=== PATIENT | female | born 1995 | race Caucasian/White ===

== ENCOUNTER → 2017-01-01 | Outpatient (CLI) | payer MEDICAID | LOC: MW.CHOBGYN 08:53 | PROVIDERS: ATTEND Obstetrics & Gynecology | DX: N89.8 Other specified noninflammatory disorders of vagina (principal) | CPT/HCPCS: 81003; 87480; 87510; 87660 ==

== ENCOUNTER → 2017-01-25 | Outpatient (CLI) | payer MEDICAID | LOC: MW.CHOBGYN 10:38 | PROVIDERS: ATTEND Obstetrics & Gynecology | DX: Z34.90 Encounter for supervision of normal pregnancy, unspecified, unspecified trimester (principal) | CPT/HCPCS: 87081 ==

== ENCOUNTER → 2017-02-01 | Outpatient (CLI) | payer MEDICAID | LOC: MW.CHOBGYN 10:24 | PROVIDERS: ATTEND Obstetrics & Gynecology | DX: Z34.90 Encounter for supervision of normal pregnancy, unspecified, unspecified trimester (principal) | CPT/HCPCS: 81003 ==

== ENCOUNTER → 2017-02-08 | Outpatient (CLI) | payer MEDICAID | LOC: MW.CHOBGYN 10:18 | PROVIDERS: ATTEND Obstetrics & Gynecology | DX: Z34.90 Encounter for supervision of normal pregnancy, unspecified, unspecified trimester (principal) | CPT/HCPCS: 81003 ==

== ENCOUNTER 2017-02-25 05:07 | Inpatient (IN) | payer MEDICAID ==
[2017-02-25] MEDS ORDERED: ceFAZolin 2 GM in Premix Bag 1 BAG IV ONE (05:12)
[2017-02-25] MEDS ORDERED: Sodium Chloride 0.9% 2.5 ML Syringe FLUSH PRN (05:12)
[2017-02-25] MEDS ORDERED: Sodium Chloride 0.9% 10 ML Syringe FLUSH PRN (05:12)
[2017-02-25] MEDS ORDERED: Citric Acid/Sodium Citrate Solution 30 ML Cup PO ONE (05:15)
[2017-02-25] MEDS: Lactated Ringers 1,000 ML IV SCH ×2 (05:30→06:09)
--- NOTE | 2017-02-25 07:00 | PCM.PREANE ---
Preanesthetic Assessment - Procedure Proposed Procedure: - Anesthesia/Transfusion/Family Hx Anesthesia History: Prior Anesthesia Without Reaction Family History of Anesthesia Reaction: No Transfusion History: No Prior Transfusion(s) Intubation History: Unknown Additional History: Vaginal herpes flare initiated add-on - Review of Systems General: No Symptoms Pulmonary: No Symptoms Cardiovascular: No Symptoms Gastrointestinal: Other (heartburn) Neurological: No Symptoms Other: Reports: None - Physical Assessment Height: 5 ft 2 in Weight: 149 lb ASA Class: 2 Mental Status: Alert & Oriented x3 Airway Class: Mallampati = 1 Dentition: Reports: Normal Dentition Thyro-Mental Finger Breadths: 3 Mouth Opening Finger Breadths: 3 (tongue post) ROM/Head Extension: Full Lungs: Clear to auscultation, Normal respiratory effort Cardiovascular: Regular Rate, Regular Rhythm, No Murmurs - Lab Values: Laboratory Last Values WBC 7.85 K/uL (4.0-11.0) 02/25/17 05:23 RBC 3.91 M/uL (4.30-5.90) L 02/25/17 05:23 Hgb 12.2 g/dL (12.0-16.0) 02/25/17 05:23 Hct 35.1 % (36.0-46.0) L 02/25/17 05:23 MCV 89.8 fL (80.0-98.0) 02/25/17 05:23 MCH 31.2 pg (27.0-32.0) 02/25/17 05:23 MCHC 34.8 g/dL (31.0-37.0) 02/25/17 05:23 RDW Std Deviation 43.8 fl (28.0-62.0) 02/25/17 05:23 RDW Coeff of Conner 13 % (11.0-15.0) 02/25/17 05:23 Plt Count 226 K/uL (150-400) 02/25/17 05:23 MPV 8.90 fL (7.40-12.00) 02/25/17 05:23 Nucleated RBC % 0.0 /100WBC 02/25/17 05:23 Nucleated RBCs # 0 K/uL 02/25/17 05:23 Blood Type B POSITIVE 02/25/17 05:23 Antibody Screen NEGATIVE 02/25/17 05:23 - Allergies Allergies/Adverse Reactions: Allergies Allergy/AdvReac Type Severity Reaction Status Date / Time No Known Allergies Allergy Verified 10/25/14 22:21 - Blood Blood Available: No Product(s) Available: None - Anesthesia Plan Pre-Op Medication Ordered: Antacids - Acknowledgements Anesthesia Type Planned: Spinal Pt an Appropriate Candidate for the Planned Anesthesia: Yes Alternatives and Risks of Anesthesia Discussed w Pt/Guardian: Yes Pt/Guardian Understands and Agrees with Anesthesia Plan: Yes PreAnesthesia Questionnaire - Past Health History Medical/Surgical History: Denies Medical/Surgical History [employer] History: Reports: Psychiatric History: Reports: Anxiety, Depression Hematologic History: Reports: Other (see below) Other Hematologic History: Patient states she had "sepsis." - Past Surgical History HEENT Surgical History: Reports: Tonsillectomy - SUBSTANCE USE Smoking Status *Q: Never Smoker Tobacco Use Within Last Twelve Months: No Second Hand Smoke Exposure: No Days Per Week of Alcohol Use: 0 Recreational Drug Use History: No Recreational Drug Type: Reports: Marijuana/Hashish Recreational Drug Last Use: 2 weeks ago - HOME MEDS Home Medications: Home Meds . [No Known Home Meds] 10/25/14 [History] - CURRENT (IN HOUSE) MEDS Current Meds: Current Medications Lactated Ringer's (Ringers, Lactated) 1,000 mls @ 500 mls/hr IV .BOLUS CATHIE Last Admin: 02/25/17 06:09 Dose: 500 mls/hr Sodium Chloride (Saline Flush) 10 ml FLUSH ASDIRECTED PRN PRN Reason: Keep Vein Open Sodium Chloride (Saline Flush) 2.5 ml FLUSH ASDIRECTED PRN PRN Reason: Keep Vein Open Discontinued Medications Citric Acid/Sodium Citrate (Bicitra Solution) 30 ml PO ONETIME ONE Stop: 02/25/17 05:16 Cefazolin Sodium/Dextrose 2 gm (/ Premix) 50 mls @ 100 mls/hr IV ONETIME ONE Stop: 02/25/17 05:41
[2017-02-25] MEDS ORDERED: ePHEDrine 50 MG/ML SDV ONE ×2 (07:23)
[2017-02-25] MEDS ORDERED: Oxytocin 10 Units/1 ML SDV ONE (07:23)
[2017-02-25] MEDS ORDERED: Morphine PF 10 MG/10 ML SDV ONE (07:25)
[2017-02-25] MEDS ORDERED: Citric Acid/Sodium Citrate Solution 30 ML Cup ONE (07:35)
--- NOTE | 2017-02-25 07:55 | PCM.LDHP ---
L&D History of Present Illness - General Date of Service: 02/25/17 Admit Problem/Dx: Patient Status Order with Admit Dx/Problem 02/25/17 05:12 Patient Status [ADT] Routine Admission Diagnosis/Problem Admission Diagnosis/Problem - planned Source of Information: Patient History Limitations: Reports: No limitations - History of Present Illness Improves with: Reports: None Worsens with: Reports: None Associated Symptoms: Reports: N - Related Data Allergies/Adverse Reactions: Allergies Allergy/AdvReac Type Severity Reaction Status Date / Time No Known Allergies Allergy Verified 10/25/14 22:21 Home Medications: Home Meds . 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: Psychiatric History: Reports: Anxiety, Depression Hematologic History: Reports: Other (see below) Other Hematologic History: Patient states she had "sepsis." - Past Surgical History HEENT Surgical History: Reports: Tonsillectomy Social & Family History - Family History HEENT: Reports: Impaired vision Cardiac: Reports: Hypertension, [place] Respiratory: Reports: Asthma OBGYN: Reports: Musculoskeletal: Reports: Back pain, chronic Psychiatric: Reports: Depression - Tobacco Use Smoking Status *Q: Never Smoker Second Hand Smoke Exposure: No - Caffeine Use Caffeine Use: Reports: Coffee - Alcohol Use Days Per Week of Alcohol Use: 0 - Recreational Drug Use Recreational Drug Use: No Drug Use in Last 12 Months: Yes Recreational Drug Type: Reports: Marijuana/Hashish Recreational Drug Use Frequency: Socially Recreational Drug Last Use: 2 weeks ago H&P Review of Systems - Review of Systems: Review Of Systems: See Below General: Reports: no symptoms HEENT: Reports: no symptoms Pulmonary: Reports: No Symptoms Cardiovascular: Reports: no symptoms Gastrointestinal: Reports: No symptoms Genitourinary: Reports: no symptoms Musculoskeletal: Reports: no symptoms Skin: Reports: no symptoms Psychiatric: Reports: no symptoms Neurological: Reports: No Symptoms Hematologic/Lymphatic: Reports: no symptoms Immunologic: Reports: no symptoms L&D Exam - Exam Exam: See Below - Vital Signs Weight: 67.585 kg - OB Specific Fundal Height in cm: 37 Contraction Intensity: Mild movement: active heart tones: present Presentation: Vertex - Black Score Black Score Consistency: Medium Black Score Effacement: 31-50% Black Score Dilation: 1-2 cm - Patient Data Lab Results last 24 hrs: Laboratory Results - last 24 hr 02/25/17 02/25/17 Range/Units 05:23 05:23 WBC 7.85 (4.0-11.0) K/uL RBC 3.91 L (4.30-5.90) M/uL Hgb 12.2 (12.0-16.0) g/dL Hct 35.1 L (36.0-46.0) % MCV 89.8 (80.0-98.0) fL MCH 31.2 (27.0-32.0) pg MCHC 34.8 (31.0-37.0) g/dL RDW Std Deviation 43.8 (28.0-62.0) fl RDW Coeff of Conner 13 (11.0-15.0) % Plt Count 226 (150-400) K/uL MPV 8.90 (7.40-12.00) fL Nucleated RBC % 0.0 /100WBC Nucleated RBCs # 0 K/uL Blood Type B POSITIVE Antibody Screen NEGATIVE Result Diagrams: 02/25/17 05:23 Problem List Initiated/Reviewed/Updated: Yes Orders Last 24hrs: Active Orders 24 hr Category Date Time Status Patient Status [ADT] Routine ADT 02/25/17 05:12 Active Notify Provider Vital Signs [RC] PRN Care 02/25/17 05:15 Active Procedure Site Prep Instruct [RC] ASDIRECTED Care 02/25/17 05:12 Active Up ad Meghann [RC] ASDIRECTED Care 02/25/17 05:12 Active Verify Patient Consent Obtain [RC] ASDIRECTED Care 02/25/17 05:12 Active Vital Signs [RC] PER UNIT ROUTINE Care 02/25/17 05:12 Active Lactated Ringers [Ringers, Lactated] 1,000 ml Med 02/25/17 05:15 Active IV .BOLUS Sodium Chloride 0.9% [Saline Flush] Med 02/25/17 05:12 Active 10 ml FLUSH ASDIRECTED PRN Sodium Chloride 0.9% [Saline Flush] Med 02/25/17 05:12 Active 2.5 ml FLUSH ASDIRECTED PRN Peripheral IV Insertion Adult [OM.PC] Routine Oth 02/25/17 05:12 Ordered Schedule Procedure [COMM] Per Unit Routine Oth 02/25/17 05:12 Ordered Resuscitation Status Routine Resus Stat 02/25/17 05:12 Ordered Medication Orders Lactated Ringer's (Ringers, Lactated) 1,000 mls @ 500 mls/hr IV .BOLUS CATHIE Last Admin: 02/25/17 06:09 Dose: 500 mls/hr Infusion: 02/25/17 06:09 Dose: 999 mls/hr Admin: 02/25/17 05:30 Dose: 999 mls/hr Sodium Chloride (Saline Flush) 10 ml FLUSH ASDIRECTED PRN PRN Reason: Keep Vein Open Sodium Chloride (Saline Flush) 2.5 ml FLUSH ASDIRECTED PRN PRN Reason: Keep Vein Open Assessment/Plan Comment:: Postdate active Heerpes Pt is for elective primary C/Section.
[2017-02-25] MEDS ORDERED: Ondansetron 4 MG/2 ML SDV ONE (08:38)
[2017-02-25] MEDS ORDERED: fentaNYL 100 MCG/2 ML SDV ONE (08:39)
[2017-02-25] MEDS ORDERED: Ondansetron 4 MG/2 ML SDV IV PRN (08:53)
[2017-02-25] MEDS ORDERED: Ibuprofen 800 MG Tab PO PRN (08:53)
[2017-02-25] MEDS ORDERED: Lanolin 100% Cream 7 GM Tube TOP PRN (08:53)
[2017-02-25] MEDS ORDERED: diphenhydrAMINE 50 MG/ML SDV IVPUSH PRN ×2 (08:53→09:17)
[2017-02-25] MEDS ORDERED: Acetaminophen/oxyCODONE 325-5 MG Tab PO PRN (08:53)
[2017-02-25] MEDS ORDERED: Bisacodyl 10 MG Supp RECTAL PRN (08:53)
--- NOTE | 2017-02-25 08:56 | PCM.OPNOTE ---
- General Post-Op/Procedure Note Date of Surgery/Procedure: 02/25/17 Post-Op Diagnosis: Same Primary Surgeon: Nicolas Godoy Balance Bridge Inspector: Chandni Gillespie EBL in mLs: 800 Complications: None Condition: Good
[2017-02-25] MEDS ORDERED: Lactated Ringers 1,000 ML IV SCH (09:00)
[2017-02-25] MEDS ORDERED: Nalbuphine 10 MG/1 ML Vial IVPUSH PRN (09:17)
[2017-02-25] MEDS ORDERED: Naloxone 0.4 MG/ML Syringe IVPUSH PRN (09:17)
--- NOTE | 2017-02-25 09:52 | PCM.POSTAN ---
POST ANESTHESIA ASSESSMENT - MENTAL STATUS Mental Status: alert, oriented Free Text/Narrative:: Patient is awake and asking for movement to see her new son. - VITAL SIGNS Pulse Rate: 61 SaO2: 98 Resp Rate: 14 Blood Pressure: 121/82 - RESPIRATORY Respiratory Status: respiratory rate WNL, airway patent, O2 saturation stable - CARDIOVASCULAR CV Status: pulse rate WNL, blood pressure stable - GASTROINTESTINAL GI Status: no symptoms - PAIN Pain Score: 0 (spinal working; some nasal itching) Free Text/Narrative:: Advised of antipriritic available if she deems necessary. - POST OP HYDRATION Hydration Status: adequate & stable
[2017-02-25] MEDS ORDERED: Octyl 2-Cyanoacrylate 1 Tube ONE (10:14)
[2017-02-25] MEDS ORDERED: Ondansetron 4 MG Tab.DIS PO ONE (11:00)
--- NOTE | 2017-02-25 12:35 | OR ---
SURGEON: Nicolas Godoy MD DATE OF PROCEDURE: PREOPERATIVE DIAGNOSES: Postdate . Active herpes type 2. POSTOPERATIVE DIAGNOSES: Postdate . Active herpes type 2. OPERATION PERFORMED: Primary low transverse section. ACCOUNTING BOOKKEEPER: JOHN Huynh. ANESTHESIA: Spinal by Russ Okeefe and Dr. Lakhani. ESTIMATED BLOOD LOSS: 850 mL. COMPLICATION: None. FINDINGS: Normal uterus, tubes, and ovary. Male fetus. score reported to be 8 and 9. Weight is not available at this time. INDICATION: This patient is 21, she is primigravida, she is postdate, she is 41 weeks. She was scheduled for admission for elective induction today. However, the patient reported that she had a breakout of her herpes last night that was confirmed by visual examination. I gave the patient the option to start her on Valtrex and do NST and reschedule her induction. The patient has declined that and she opted for elective section. PROCEDURE IN DETAIL: The patient was brought to the OR, properly identified, and after adequate level of spinal anesthesia, the patient was prepped and draped in sterile fashion as usual. Low transverse Pfannenstiel skin incision was done. The Rubin's fascia and rectus fascia was opened in direction of the incision. The 2 recti muscles were and peritoneal cavity was entered. Bladder flap was raised in the usual manner pushing the bladder away from the lower uterine segment. Low transverse uterine incision was done, extended manually with the hand. Fetus was in the vertex position, delivered without any problems, cried immediately. Later on, the score reported to be 8 and 9. Weight is not available. The placenta delivered spontaneous, complete, and intact and then repair of the lower uterine segment done with 2-0 Vicryl continuous interlocking in 2 layers. Reperitonealization done with 2-0 Vicryl continuous. The incision inspected. There was no oozing or bleeding. The peritoneal cavity was evacuated completely from all blood and blood clot and closed with 3-0 Vicryl continuous. The rectus fascia was closed with #1 PDS double strand continuous, Rubin's fascia with 3-0 Vicryl continuous, and the skin was closed in a subcuticular fashion. Instrument and sponge count was correct. The patient tolerated the procedure well and went to recovery room in stable general condition. JAYLEN / MARIANNE /[id number]
[2017-02-25] MEDS ORDERED: fentaNYL 100 MCG/2 ML SDV IVPUSH PRN ×3 (12:45→20:30)
[2017-02-25] MEDS: Ketorolac 30 MG/ML SDV IVPUSH SCH ×2 (15:36→21:21)
[2017-02-25] MEDS: Docusate Sodium 100 MG Cap PO SCH (21:22)
[2017-02-26] MEDS ORDERED: Furosemide 20 MG/2 ML VIAL IVPUSH ONE (00:36)
[2017-02-26] MEDS: Ketorolac 30 MG/ML SDV IVPUSH SCH ×2 (03:54→09:32)
--- NOTE | 2017-02-26 07:13 | PCM48HPAN ---
Post Anesthesia Note - EVALUATION WITHIN 48HRS OF ANESTHETIC Vital Signs in Normal Range: Yes Patient Participated in Evaluation: Yes Respiratory Function Stable: Yes Airway Patent: Yes Cardiovascular Function Stable: Yes Hydration Status Stable: Yes Pain Control Satisfactory: Yes Nausea and Vomiting Control Satisfactory: Yes Mental Status Recovered: Yes
--- NOTE | 2017-02-26 09:08 | PCM.PNPP ---
- General Info Date of Service: 02/26/17 Functional Status: Reports: pain controlled - Review of Systems General: Reports: No Symptoms HEENT: Reports: no symptoms Pulmonary: Reports: no symptoms Cardiovascular: Reports: No Symptoms Gastrointestinal: Reports: No symptoms Genitourinary: Reports: no symptoms Musculoskeletal: Reports: no symptoms Skin: Reports: no symptoms Neurological: Reports: No Symptoms Psychiatric: Reports: no symptoms - General Info Date of Service: 02/26/17 - Patient Data Vital Signs - most recent: Last Vital Signs Temp 37.1 C 02/26/17 08:23 Pulse 94 02/26/17 08:23 Resp 14 02/26/17 08:23 BP 113/58 L 02/26/17 08:23 Pulse Ox 95 02/26/17 08:23 Weight - most recent: 67.585 kg I&O - last 24 hours: Intake & Output 02/25/17 02/26/17 02/26/17 22:59 06:59 14:59 Output Total 205 3420 Balance -205 -3420 Lab Results - last 24 hrs: Laboratory Results - last 24 hr 02/26/17 Range/Units 04:32 Hgb 9.2 L (12.0-16.0) g/dL Hct 26.5 L (36.0-46.0) % Med Orders - Current: Current Medications Bisacodyl (Dulcolax) 10 mg RECTAL .ONCE PRN PRN Reason: Constipation Diphenhydramine HCl (Benadryl) 25 mg IVPUSH Q6H PRN PRN Reason: Itching or Nausea Diphenhydramine HCl (Benadryl) 25 mg IVPUSH Q4H PRN PRN Reason: Itching Stop: 02/26/17 09:17 Docusate Sodium (Colace) 100 mg PO BID CATHIE Last Admin: 02/25/17 21:22 Dose: 100 mg Emollient Ointment (Lansinoh Hpa) 0 gm TOP ASDIRECTED PRN PRN Reason: Sore Nipples Lactated Ringer's (Ringers, Lactated) 1,000 mls @ 500 mls/hr IV .BOLUS CATHIE Last Admin: 02/25/17 06:09 Dose: 500 mls/hr Lactated Ringer's (Ringers, Lactated) 1,000 mls @ 125 mls/hr IV ASDIRECTED CATHIE Last Admin: 02/25/17 18:10 Dose: 125 mls/hr Ibuprofen (Motrin) 800 mg PO Q8H PRN PRN Reason: mild pain or fever Nalbuphine HCl (Nubain) 5 mg IVPUSH Q3H PRN PRN Reason: Pruritis Stop: 02/26/17 09:17 Last Admin: 02/25/17 15:43 Dose: 5 mg Naloxone HCl (Narcan) 0.1 mg IVPUSH ONETIME PRN PRN Reason: Resp. Depression Stop: 02/26/17 09:17 Ondansetron HCl (Zofran) 4 mg IV Q4H PRN PRN Reason: Nausea/Vomiting Last Admin: 02/25/17 15:39 Dose: 4 mg Oxycodone/Acetaminophen (Percocet 325-5 Mg) 1 tab PO Q4H PRN PRN Reason: Pain (moderate 4-6) Oxycodone/Acetaminophen (Percocet 325-5 Mg) 2 tab PO Q4H PRN PRN Reason: Pain (moderate 4-6) Sodium Chloride (Saline Flush) 10 ml FLUSH ASDIRECTED PRN PRN Reason: Keep Vein Open Sodium Chloride (Saline Flush) 2.5 ml FLUSH ASDIRECTED PRN PRN Reason: Keep Vein Open Discontinued Medications Citric Acid/Sodium Citrate (Bicitra Solution) 30 ml PO ONETIME ONE Stop: 02/25/17 05:16 Last Admin: 02/25/17 07:37 Dose: 30 ml Citric Acid/Sodium Citrate (Bicitra Solution) Confirm Administered Dose 30 ml .ROUTE .STK-MED ONE Stop: 02/25/17 07:36 Ephedrine Sulfate (Ephedrine Sulfate) Confirm Administered Dose 50 mg .ROUTE .STK-MED ONE Stop: 02/25/17 07:24 Ephedrine Sulfate (Ephedrine Sulfate) Confirm Administered Dose 50 mg .ROUTE .STK-MED ONE Stop: 02/25/17 07:24 Fentanyl (Sublimaze) Confirm Administered Dose 100 mcg .ROUTE .STK-MED ONE Stop: 02/25/17 08:40 Fentanyl (Sublimaze) 50 mcg IVPUSH Q45M PRN PRN Reason: Pain Stop: 02/25/17 13:31 Fentanyl (Sublimaze) 50 mcg IVPUSH Q45M PRN PRN Reason: Pain Stop: 02/25/17 18:01 Last Admin: 02/25/17 13:06 Dose: 50 mcg Fentanyl (Sublimaze) 50 mcg IVPUSH Q45M PRN PRN Reason: Pain (severe 7-10) Stop: 02/26/17 09:00 Furosemide (Lasix) 20 mg IVPUSH ONETIME ONE Stop: 02/26/17 00:37 Last Admin: 02/26/17 00:57 Dose: 20 mg Cefazolin Sodium/Dextrose 2 gm (/ Premix) 50 mls @ 100 mls/hr IV ONETIME ONE Stop: 02/25/17 05:41 Ketorolac Tromethamine (Toradol) 30 mg IVPUSH Q6H CATHIE Stop: 02/26/17 09:01 Last Admin: 02/26/17 03:54 Dose: 30 mg Morphine Sulfate (Duramorph Pf) Confirm Administered Dose 10 mg .ROUTE .STK-MED ONE Stop: 02/25/17 07:26 Octyl Cyanoacrylate (Dermabond Advance) Confirm Administered Dose 1 applic .ROUTE .STK-MED ONE Stop: 02/25/17 10:15 Ondansetron HCl (Zofran) Confirm Administered Dose 4 mg .ROUTE .STK-MED ONE Stop: 02/25/17 08:39 Ondansetron HCl (Zofran Odt) 4 mg PO ONETIME ONE Stop: 02/25/17 11:01 Last Admin: 02/25/17 11:24 Dose: 4 mg Oxytocin (Pitocin) Confirm Administered Dose 20 unit .ROUTE .STK-MED ONE Stop: 02/25/17 07:24 - Infant Interaction Support Person: Friend - Recovery Exam Fundal Tone: Firm Fundal Level: 1 Fingerbreadths Below Umbilicus Fundal Placement: Midline Lochia Amount: Small Lochia Color: Rubra/Red Perineum Description: Intact, Minimal Bruising/Swelling Episiotomy/Laceration: None Bladder Status: Nonpalpable Urinary Elimination: Indwelling Catheter - Exam General: alert, oriented HEENT: Pupils equal Neck: supple Lungs: Clear to auscultation, Normal respiratory effort Cardiovascular: Regular Rate, Regular Rhythm Abdomen: bowel sounds present, soft, no tenderness, no distension Extremities: no edema Skin: warm, dry, intact Wound/Incisions: healing well Neurological: no new focal deficit Psy/Mental Status: alert, normal affect, normal mood - Problem List Review Problem List Initiated/Reviewed/Updated: Yes - My Orders Last 24 Hours: My Active Orders 02/25/17 08:53 Acetaminophen/oxyCODONE [Percocet 325-5 MG] 1 tab PO Q4H PRN Acetaminophen/oxyCODONE [Percocet 325-5 MG] 2 tab PO Q4H PRN Bisacodyl [Dulcolax] 10 mg RECTAL .ONCE PRN Ibuprofen [Motrin] 800 mg PO Q8H PRN Lanolin [Lansinoh HPA] See Dose Instructions TOP ASDIRECTED PRN Ondansetron [Zofran] 4 mg IV Q4H PRN diphenhydrAMINE [Benadryl] 25 mg IVPUSH Q6H PRN 02/25/17 08:54 Patient Status [ADT] Routine Ambulate [RC] PER UNIT ROUTINE Antiembolic Devices [RC] PER UNIT ROUTINE Communication Order [RC] PER UNIT ROUTINE Communication Order [RC] Per Unit Routine May Shower [RC] ASDIRECTED RT Incentive Spirometry [RC] Q2HWA Assess Lochia [WOMSER] Per Unit Routine Assess Uterine Involution [WOMSER] Per Unit Routine Breast Pump [WOMSER] Per Unit Routine Peripheral IV Discontinue [OM.PC] Routine Sequential Compression Device [OM.PC] Per Unit Routine 02/25/17 09:00 Docusate Sodium [Colace] 100 mg PO BID Lactated Ringers [Ringers, Lactated] 1,000 ml IV ASDIRECTED 02/26/17 Lunch Regular Diet [DIET] - Assessment Assessment:: Status post section postoperative day one doing well her lab work is within normal limits patient on regular diet tolerated very - Plan Plan:: Postdate active Heerpes Pt is for elective primary C/Section.
[2017-02-26] MEDS: Docusate Sodium 100 MG Cap PO SCH ×2 (09:32→21:38)
[2017-02-27] MEDS: Acetaminophen/oxyCODONE 325-5 MG Tab PO PRN ×2 (01:54→08:30)
[2017-02-27] MEDS: Docusate Sodium 100 MG Cap PO SCH ×2 (06:46→08:27)
--- NOTE | 2017-02-27 09:04 | PCM.DCSUM1 ---
Discharge Summary - Hospital Course Free Text/Narrative:: Discharge home with infant. Follow up in 10 days or prn - Discharge Data Discharge Date: 02/27/17 Discharge Disposition: Home, Self-Care 01 Condition: Good - Discharge Diagnosis/Problem(s) (1) Supervision of normal IUP (intrauterine ) in primigravida SNOMED Code(s): 38475286, 432087251, 949326650, [id number] ICD Code: Z34.00 - ENCNTR FOR SUPRVSN OF NORMAL FIRST , UNSP TRIMESTER Status: Acute Current Visit: Yes Qualifiers: Trimester: third trimester Qualified Code(s): Z34.03 - Encounter for supervision of normal first , third trimester (2) HSV infection Status: Acute Priority: High Current Visit: Yes (3) delivery delivered SNOMED Code(s): 326494251 ICD Code: O82 - ENCOUNTER FOR DELIVERY WITHOUT INDICATION Status: Acute Priority: Medium Current Visit: Yes - Patient Instructions Diet: Usual Diet as Tolerated Activity: As Tolerated, Rest and Relax Today Driving: May Drive Today Showering/Bathing: May Shower Notify Provider of: Fever, Increased Pain, Swelling and Redness, Drainage, Nausea and/or Vomiting - Discharge Plan Home Medications: Home Meds . [No Known Home Meds] 10/25/14 [History] Referrals: [facility] [Outside] Nicolas Godoy MD [Physician] - (1 week- March 08 @ 1:30pm w/ Daysi Stewart (Dr. Godoy out of office) 6 week- April 12 @10:45am w/ Dr. Godoy) - General Info Date of Service: 02/27/17 Admission Dx/Problem (Free Text: Patient Status Order with Admit Dx/Problem 02/25/17 05:12 Patient Status [ADT] Routine Admission Diagnosis/Problem Admission Diagnosis/Problem - planned Functional Status: Reports: pain controlled, tolerating diet, ambulating, urinating - Review of Systems General: Reports: No Symptoms HEENT: Reports: no symptoms Pulmonary: Reports: no symptoms Cardiovascular: Reports: No Symptoms Gastrointestinal: Reports: No symptoms Genitourinary: Reports: no symptoms Musculoskeletal: Reports: no symptoms Skin: Reports: no symptoms Neurological: Reports: No Symptoms Psychiatric: Reports: no symptoms - Patient Data Vitals - Most Recent: Last Vital Signs Temp 36.4 C 02/27/17 04:00 Pulse 64 02/27/17 04:00 Resp 14 02/27/17 04:00 BP 99/54 L 02/27/17 04:00 Pulse Ox 94 L 02/27/17 04:00 Weight - Most Recent: 67.585 kg Med Orders - Current: Current Medications Bisacodyl (Dulcolax) 10 mg RECTAL .ONCE PRN PRN Reason: Constipation Diphenhydramine HCl (Benadryl) 25 mg IVPUSH Q6H PRN PRN Reason: Itching or Nausea Docusate Sodium (Colace) 100 mg PO BID CATHIE Last Admin: 02/27/17 08:27 Dose: 100 mg Emollient Ointment (Lansinoh Hpa) 0 gm TOP ASDIRECTED PRN PRN Reason: Sore Nipples Lactated Ringer's (Ringers, Lactated) 1,000 mls @ 500 mls/hr IV .BOLUS [facility] Last Admin: 02/25/17 06:09 Dose: 500 mls/hr Lactated Ringer's (Ringers, Lactated) 1,000 mls @ 125 mls/hr IV ASDIRECTED [facility] Last Admin: 02/25/17 18:10 Dose: 125 mls/hr Ibuprofen (Motrin) 800 mg PO Q8H PRN PRN Reason: mild pain or fever Last Admin: 02/26/17 19:50 Dose: 800 mg Ondansetron HCl (Zofran) 4 mg IV Q4H PRN PRN Reason: Nausea/Vomiting Last Admin: 02/25/17 15:39 Dose: 4 mg Oxycodone/Acetaminophen (Percocet 325-5 Mg) 1 tab PO Q4H PRN PRN Reason: Pain (moderate 4-6) Last Admin: 02/26/17 16:15 Dose: 1 tab Oxycodone/Acetaminophen (Percocet 325-5 Mg) 2 tab PO Q4H PRN PRN Reason: Pain (moderate 4-6) Last Admin: 02/27/17 08:30 Dose: 2 tab Sodium Chloride (Saline Flush) 10 ml FLUSH ASDIRECTED PRN PRN Reason: Keep Vein Open Sodium Chloride (Saline Flush) 2.5 ml FLUSH ASDIRECTED PRN PRN Reason: Keep Vein Open Discontinued Medications Citric Acid/Sodium Citrate (Bicitra Solution) 30 ml PO ONETIME ONE Stop: 02/25/17 05:16 Last Admin: 02/25/17 07:37 Dose: 30 ml Citric Acid/Sodium Citrate (Bicitra Solution) Confirm Administered Dose 30 ml .ROUTE .STK-MED ONE Stop: 02/25/17 07:36 Diphenhydramine HCl (Benadryl) 25 mg IVPUSH Q4H PRN PRN Reason: Itching Stop: 02/26/17 09:17 Ephedrine Sulfate (Ephedrine Sulfate) Confirm Administered Dose 50 mg .ROUTE .STK-MED ONE Stop: 02/25/17 07:24 Ephedrine Sulfate (Ephedrine Sulfate) Confirm Administered Dose 50 mg .ROUTE .STK-MED ONE Stop: 02/25/17 07:24 Fentanyl (Sublimaze) Confirm Administered Dose 100 mcg .ROUTE .STK-MED ONE Stop: 02/25/17 08:40 Fentanyl (Sublimaze) 50 mcg IVPUSH Q45M PRN PRN Reason: Pain Stop: 02/25/17 13:31 Fentanyl (Sublimaze) 50 mcg IVPUSH Q45M PRN PRN Reason: Pain Stop: 02/25/17 18:01 Last Admin: 02/25/17 13:06 Dose: 50 mcg Fentanyl (Sublimaze) 50 mcg IVPUSH Q45M PRN PRN Reason: Pain (severe 7-10) Stop: 02/26/17 09:00 Furosemide (Lasix) 20 mg IVPUSH ONETIME ONE Stop: 02/26/17 00:37 Last Admin: 02/26/17 00:57 Dose: 20 mg Cefazolin Sodium/Dextrose 2 gm (/ Premix) 50 mls @ 100 mls/hr IV ONETIME ONE Stop: 02/25/17 05:41 Ketorolac Tromethamine (Toradol) 30 mg IVPUSH Q6H CATHIE Stop: 02/26/17 09:01 Last Admin: 02/26/17 09:32 Dose: 30 mg Morphine Sulfate (Duramorph Pf) Confirm Administered Dose 10 mg .ROUTE .STK-MED ONE Stop: 02/25/17 07:26 Nalbuphine HCl (Nubain) 5 mg IVPUSH Q3H PRN PRN Reason: Pruritis Stop: 02/26/17 09:17 Last Admin: 02/25/17 15:43 Dose: 5 mg Naloxone HCl (Narcan) 0.1 mg IVPUSH ONETIME PRN PRN Reason: Resp. Depression Stop: 02/26/17 09:17 Octyl Cyanoacrylate (Dermabond Advance) Confirm Administered Dose 1 applic .ROUTE .STK-MED ONE Stop: 02/25/17 10:15 Ondansetron HCl (Zofran) Confirm Administered Dose 4 mg .ROUTE .STK-MED ONE Stop: 02/25/17 08:39 Ondansetron HCl (Zofran Odt) 4 mg PO ONETIME ONE Stop: 02/25/17 11:01 Last Admin: 02/25/17 11:24 Dose: 4 mg Oxytocin (Pitocin) Confirm Administered Dose 20 unit .ROUTE .STK-MED ONE Stop: 02/25/17 07:24 - Exam General: Reports: alert, oriented, cooperative, no acute distress Lungs: Reports: Normal respiratory effort Cardiovascular: Reports: Regular Rate, Regular Rhythm Abdomen: Reports: soft, no tenderness, no distension (Female) Exam: Vaginal bleeding Rectal (Female) Exam: Deferred Back Exam: Reports: normal inspection, full range of motion Extremities: Reports: no edema, normal pulses Skin: Reports: warm, dry, intact Wound/Incisions: Reports: healing well, no drainage Neurological: Reports: no new focal deficit Psy/Mental Status: Reports: alert, normal affect, normal mood *Q Meaningful Use (DIS) - VTE *Q VTE Criteria *Q: - Stroke *Q Stroke Criteria *Q: - AMI *Q AMI Criteria *Q:
[2017-02-27 09:08] VITALS: BP 101/62
== END 2017-02-27 14:10 | disposition home or self-care (01) | DRG 765 ==
LOC: MW.OB 05:07
PROVIDERS: ADMIT Obstetrics & Gynecology; ATTEND Obstetrics & Gynecology
PROC: 10D00Z1 Extraction of Products of Conception, Low, Open Approach (ICD-10-PCS; principal; 2017-02-25)
DX: O48.0 Post-term pregnancy (principal); O98.52 Other viral diseases complicating childbirth; B00.9 Herpesviral infection, unspecified; Z3A.41 41 weeks gestation of pregnancy; Z37.0 Single live birth
CPT/HCPCS: 01961; 36415; 59025; 85014; 85018; 85027; 86850; 86900; 86901; A9270-GY; J1885; J2270; J2300; J2405; J2590; J3010; J7120

== ENCOUNTER 2017-09-19 21:05 | Emergency (ER) | payer SELFPAY ==
--- NOTE | 2017-09-19 21:39 | EDM.PDOC ---
<Vilma Sweeney - Last Filed: 09/19/17 22:02> ED HPI GENERAL MEDICAL PROBLEM - General Chief Complaint: Abdominal Pain Stated Complaint: ABDOMEN PAIN FROM IUD Time Seen by Provider: 09/19/17 21:27 Source of Information: Reports: Patient History Limitations: Reports: No Limitations - History of Present Illness INITIAL COMMENTS - FREE TEXT/NARRATIVE: HISTORY AND PHYSICAL: []22-year-old female presenting with pelvic pain regarding her IUD History of Present Illness: []Patient has had IUD for the last 5 months as just over 2 hours ago her and her boyfriend were having sexual intercourse and she had sharp pain Review of Systems: As per history of present illness and below otherwise all systems reviewed and negative. Past medical history: As per history of present illness and as reviewed below otherwise noncontributory. Surgical history: As per history of present illness and as reviewed below otherwise noncontributory. Social history: No reported history of drug or alcohol abuse. Family history: As per history of present illness and as reviewed below otherwise noncontributory. Physical exam: Alert and oriented female answers questions appropriately in full sentences shortness breath HEENT: Atraumatic, normocehpalic, pupils reactive, negative for conjunctival pallor or scleral icterus, mucous membranes moist, throat clear, neck supple, nontender, trachea midline. Lungs: Clear to auscultation, breath sounds equal bilaterally, chest non tender. Heart: S1S2, regular, negative for clicks, rubs, or JVD. Abdomen: Soft, nondistended, nontender. Negative for masses or hepatossplenmegaly. Negative for costovertebral tenderness. Pelvis: Stable nontender. Genitourinary: Pelvic examination identifies strings of the IUD at the cervical os Rectal: Deferred Extremities: Atraumatic, negative for cords or calf pain. Neurovascular unremarkable. Neuro: Awake, alert, oriented. Cranial nerves II through XII unremarkable. Cerebellum unremarkable. Motor and sensory unremarkable throughout. Exam nonfocal. Discussed I could visualize the strings of the IUD. Pelvic ultrasound pending. Diagnostics: [Ultrasound pelvis] Therapeutics: [] Impression: []Pain after intercourse Plan: []Discharge to home Definitive disposition and diagnosis as appropriate pending reevaluation and review of above. Onset: Today, Sudden Duration: Hour(s): (2) Location: Reports: Pelvis Lower Abdomen Pain Score (Numeric/FACES): 7 - Related Data Allergies Allergy/AdvReac Type Severity Reaction Status Date / Time No Known Allergies Allergy Verified 09/19/17 21:10 Home Meds: Home Meds . 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: Musculoskeletal History: Reports: None Neurological History: Reports: None Psychiatric History: Reports: Anxiety, Depression Endocrine/Metabolic History: Reports: None Hematologic History: Reports: Other (See Below) Other Hematologic History: sepsis Immunologic History: Reports: None Oncologic (Cancer) History: Reports: None Dermatologic History: Reports: None - Past Surgical History Head Surgeries/Procedures: Reports: None HEENT Surgical History: Reports: Tonsillectomy Cardiovascular Surgical History: Reports: None Respiratory Surgical History: Reports: None GI Surgical History: Reports: None Female Surgical History: Reports: None Endocrine Surgical History: Reports: None Neurological Surgical History: Reports: None Musculoskeletal Surgical History: Reports: None Oncologic Surgical History: Reports: None Dermatological Surgical History: Reports: None Social & Family History - Family History HEENT: Reports: Impaired Vision Cardiac: Reports: Hypertension, [place] Respiratory: Reports: Asthma OBGYN: Reports: Musculoskeletal: Reports: Back pain, Chronic Psychiatric: Reports: Depression - Tobacco Use Smoking Status *Q: Never Smoker Second Hand Smoke Exposure: No - Caffeine Use Caffeine Use: Reports: Coffee, Energy Drinks, Soda - Alcohol Use Days Per Week of Alcohol Use: 0 - Recreational Drug Use Recreational Drug Use: Yes Drug Use in Last 12 Months: Yes Recreational Drug Type: Reports: Marijuana/Hashish Recreational Drug Use Frequency: Monthly Recreational Drug Last Use: 2 weeks ago ED ROS GENERAL - Review of Systems Review Of Systems: ROS reveals no pertinent complaints other than HPI. ED EXAM, RENAL/ - Physical Exam Exam: See Below (see dictatio) Course - Vital Signs Last Recorded V/S: Last Vital Signs Temp 36.9 C 09/19/17 21:10 Pulse 66 09/19/17 21:10 Resp 18 09/19/17 21:10 BP 105/52 L 09/19/17 21:10 Pulse Ox 98 09/19/17 21:10 - Orders/Labs/Meds Orders: Active Orders 24 hr Category Date Time Status Pelvis Non OB Ltd [US] Stat Exams 09/19/17 21:47 Taken Departure - Departure Time of Disposition: 22:06 Disposition: Home, Self-Care 01 Condition: Good Clinical Impression: Pelvic pain - Discharge Information Referrals: Nicolas Godoy MD [Primary Care Provider] - Forms: ED Department Discharge Additional Instructions: The following information is given to patients seen in the emergency department who are being discharged to home. This information is to outline your options for follow-up care. We provide all patients seen in our emergency department with a follow-up referral. The need for follow-up, as well as the timing and circumstances, are variable depending upon the specifics of your emergency department visit. If you don't have a primary care physician on staff, we will provide you with a referral. We always advise you to contact your personal physician following an emergency department visit to inform them of the circumstance of the visit and for follow-up with them and/or the need for any referrals to a consulting specialist. The emergency department will also refer you to a specialist when appropriate. This referral assures that you have the opportunity for followup care with a specialist. All of these measure are taken in an effort to provide you with optimal care, which includes your followup. Under all circumstances we always encourage you to contact your private physician who remains a resource for coordinating your care. When calling for followup care, please make the office aware that this follow-up is from your recent emergency room visit. If for any reason you are refused follow-up, please contact the [facility] emergency department at and asked to speak to the emergency department charge nurse. Follow-up with your MOTTLER OPERATOR <Alfred Reich - Last Filed: 09/19/17 23:50> Course - Vital Signs Text/Narrative:: Pelvic ultrasound demonstrates IUD identified within the endometrial canal at the level lower uterine segment there is no other significant abnormalities patient be discharged home to follow with her MOTTLER OPERATOR your private medical doctor 1-2 days or return as needed as discussed
[2017-09-20 00:03] VITALS: BP 104/66
--- NOTE | 2017-09-20 17:28 | US ---
EXAM DATE: 09/19/17 PATIENT'S AGE: 22 Patient: AALIYAH CURRY Facility: [place], [place] Site . Site : 1995 Study: US Pelvis [id number] 10:48:35 PM Ordering Physician: Doctor Landaverde Final Report: INDICATION: ICD placement, pelvic pain TECHNIQUE: Ultrasound pelvis transvaginal only. COMPARISON: None FINDINGS: Uterus: 7.2 centimeters x 4.0 centimeters x 4.8 centimeters. Normal echotexture of the myometrium. No masses. Trace fluid in the endometrial canal. Endometrium: The endometrium measures 7 mm in thickness. No sign of endometrial mass or fluid. IUD identified in the endometrial canal at the level of the lower uterine segment. Right ovary: 4.5 centimeters x 2.7 centimeters x 4.5 centimeters. No ovarian or adnexal masses. Normal arterial and venous blood flow. Left ovary: 3.3 centimeters x 1.7 centimeters x 2.7 centimeters. No ovarian or adnexal masses. Normal arterial and venous blood flow. Cul-de-sac: Small amount of fluid in the cul-de-sac. IMPRESSION: IUD identified in the endometrial canal at the level of the lower uterine segment. Trace fluid in the endometrial canal. Small amount of fluid in the cul-de-sac. Dictated by Kevin Harvey MD @ 09/19/2017 11:03:27 PM Dictated by: Kevin Harvey MD @ 09/19/2017 23:03:43 (Electronic Signature) Report Signed by Proxy. MTDShreya
== END 2017-09-19 23:59 | disposition home or self-care (01) ==
LOC: MW.ED 21:05
DX: R10.2 Pelvic and perineal pain (principal)
CPT/HCPCS: 76857; 76857-26; 99284; 99284-25

== ENCOUNTER 2017-09-21 23:22 | Emergency (ER) | payer SELFPAY ==
--- NOTE | 2017-09-21 23:41 | EDM.PDOC ---
ED HPI GENERAL MEDICAL PROBLEM - General Stated Complaint: ORAL ISSUES Time Seen by Provider: 09/21/17 23:37 - History of Present Illness INITIAL COMMENTS - FREE TEXT/NARRATIVE: HISTORY AND PHYSICAL: History of present illness: Patient's 22-year-old female presents with concern of dental abscess she's had pain with increased swelling to her left lower molar and left jaw or less 24- hour she denies fever chills nausea vomiting or other complaints Review of systems: As per history of present illness and below otherwise all systems reviewed and negative. Past medical history: As per history of present illness and as reviewed below otherwise noncontributory. Surgical history: As per history of present illness and as reviewed below otherwise noncontributory. Social history: No reported history of drug or alcohol abuse. Family history: As per history of present illness and as reviewed below otherwise noncontributory. Physical exam: HEENT: Atraumatic, normocephalic, pupils reactive, negative for conjunctival pallor or scleral icterus, mucous membranes moist, throat clear, neck supple, nontender, trachea midline. Patient has large gingival swelling with dental tenderness in the left lower molar. Lungs: Clear to auscultation, breath sounds equal bilaterally, chest nontender. Heart: S1S2, regular, negative for clicks, rubs, or JVD. Abdomen: Soft, nondistended, nontender. Negative for masses or hepatosplenomegaly. Negative for costovertebral tenderness. Pelvis: Stable nontender. Genitourinary: Deferred. Rectal: Deferred. Extremities: Atraumatic, negative for cords or calf pain. Neurovascular unremarkable. Neuro: Awake, alert, oriented. Cranial nerves II through XII unremarkable. Cerebellum unremarkable. Motor and sensory unremarkable throughout. Exam nonfocal. Diagnostics: None Therapeutics: None Impression: #1 dentalgia #2 dental abscess Definitive disposition and diagnosis as appropriate pending reevaluation and review of above. - Related Data Allergies Allergy/AdvReac Type Severity Reaction Status Date / Time No Known Allergies Allergy Verified 09/19/17 21:10 Home Meds: Home Meds . 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: Musculoskeletal History: Reports: None Neurological History: Reports: None Psychiatric History: Reports: Anxiety, Depression Endocrine/Metabolic History: Reports: None Hematologic History: Reports: Other (See Below) Other Hematologic History: sepsis Immunologic History: Reports: None Oncologic (Cancer) History: Reports: None Dermatologic History: Reports: None - Past Surgical History Head Surgeries/Procedures: Reports: None HEENT Surgical History: Reports: Tonsillectomy Cardiovascular Surgical History: Reports: None Respiratory Surgical History: Reports: None GI Surgical History: Reports: None Female Surgical History: Reports: None Endocrine Surgical History: Reports: None Neurological Surgical History: Reports: None Musculoskeletal Surgical History: Reports: None Oncologic Surgical History: Reports: None Dermatological Surgical History: Reports: None Social & Family History - Family History HEENT: Reports: Impaired Vision Cardiac: Reports: Hypertension, [place] Respiratory: Reports: Asthma OBGYN: Reports: Musculoskeletal: Reports: Back pain, Chronic Psychiatric: Reports: Depression - Tobacco Use Smoking Status *Q: Never Smoker Second Hand Smoke Exposure: No - Caffeine Use Caffeine Use: Reports: Coffee, Energy Drinks, Soda - Alcohol Use Days Per Week of Alcohol Use: 0 - Recreational Drug Use Recreational Drug Use: Yes Drug Use in Last 12 Months: Yes Recreational Drug Type: Reports: Marijuana/Hashish Recreational Drug Use Frequency: Monthly Recreational Drug Last Use: 2 weeks ago ED ROS GENERAL - Review of Systems Review Of Systems: ROS reveals no pertinent complaints other than HPI. ED EXAM, GENERAL - Physical Exam Exam: See Below (See dictated) Departure - Departure Time of Disposition: 23:39 Disposition: Home, Self-Care 01 Condition: Good Clinical Impression: Dental abscess - Discharge Information Referrals: PCP,None [Primary Care Provider] - Additional Instructions: The following information is given to patients seen in the emergency department who are being discharged to home. This information is to outline your options for follow-up care. We provide all patients seen in our emergency department with a follow-up referral. The need for follow-up, as well as the timing and circumstances, are variable depending upon the specifics of your emergency department visit. If you don't have a primary care physician on staff, we will provide you with a referral. We always advise you to contact your personal physician following an emergency department visit to inform them of the circumstance of the visit and for follow-up with them and/or the need for any referrals to a consulting specialist. The emergency department will also refer you to a specialist when appropriate. This referral assures that you have the opportunity for followup care with a specialist. All of these measure are taken in an effort to provide you with optimal care, which includes your followup. Under all circumstances we always encourage you to contact your private physician who remains a resource for coordinating your care. When calling for followup care, please make the office aware that this follow-up is from your recent emergency room visit. If for any reason you are refused follow-up, please contact the [facility] emergency department at and asked to speak to the emergency department charge nurse. Dr. Nasim Ramesh DDS [facility] [address] [place] [id number] Follow-up with general dentist private medical doctor and or oral surgery above as discussed Augmentin is prescribed Motrin/Tylenol as directed return as needed as discussed]
[2017-09-21 23:42] VITALS: BP 128/68
== END 2017-09-21 23:48 | disposition home or self-care (01) ==
LOC: MW.ED 23:22
DX: K04.7 Periapical abscess without sinus (principal)
CPT/HCPCS: 99282

== ENCOUNTER 2020-04-18 09:34 | Emergency (ER) | payer BC, MEDICAID ==
[2020-04-18 09:49] VITALS: BP 114/84; PULSE 79
--- NOTE | 2020-04-18 10:03 | EDM.PDOC ---
ED HPI GENERAL MEDICAL PROBLEM - General Chief Complaint: Genitourinary Problem Stated Complaint: PAIN AROUND KIDNEY AREA Time Seen by Provider: 04/18/20 09:47 - History of Present Illness INITIAL COMMENTS - FREE TEXT/NARRATIVE: History of present illness: [] Patient presents with 1 week of dysuria urgency and general malaise. She believes she has a urinary tract infection she denies any discharge she had some suprapubic discomfort no chills she did have a fever earlier in the week she denies any cough or trouble breathing there is not been any diarrhea one episode of vomiting. She is able to hold down p.o. fluids at this time is to make it better or worse Review of systems: As per history of present illness and below otherwise all systems reviewed and negative. Past medical history: As per history of present illness and as reviewed below otherwise noncontributory. Surgical history: As per history of present illness and as reviewed below otherwise noncontributory. Social history: No reported history of drug or alcohol abuse. Family history: As per history of present illness and as reviewed below otherwise noncontributory. Physical exam: HEENT: Atraumatic, normocephalic, pupils reactive, negative for conjunctival pallor or scleral icterus, mucous membranes moist, throat clear, neck supple, nontender, trachea midline. Lungs: Clear to auscultation, breath sounds equal bilaterally, chest nontender. Heart: S1S2, regular, negative for clicks, rubs, or JVD. Abdomen: Soft, nondistended, nontender. Negative for masses or hepatosplenomegaly. Negative for costovertebral tenderness. Pelvis: Stable nontender. Genitourinary: Deferred. Rectal: Deferred. Extremities: Atraumatic, negative for cords or calf pain. Neurovascular unremarkable. Neuro: Awake, alert, oriented. Cranial nerves II through XII unremarkable. Cerebellum unremarkable. Motor and sensory unremarkable throughout. Exam nonfocal. Diagnostics: [] Therapeutics: [] Impression: [] Plan: Vital signs are stable we will obtain a urine and hCG and reassess the patient [] Definitive disposition and diagnosis as appropriate pending reevaluation and review of above. lower abdomen Pain Score (Numeric/FACES): 7 - Related Data Allergies Allergy/AdvReac Type Severity Reaction Status Date / Time No Known Allergies Allergy Verified 04/18/20 09:48 Home Meds: Home Meds . 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/Surgical History HEENT History: Reports: None Cardiovascular History: Reports: None Respiratory History: Reports: None Gastrointestinal History: Reports: None Genitourinary History: Reports: UTI, Recurrent [employer] History: Reports: Musculoskeletal History: Reports: None Neurological History: Reports: None Psychiatric History: Reports: Anxiety, Depression Endocrine/Metabolic History: Reports: None Hematologic History: Reports: Other (See Below) Other Hematologic History: sepsis Immunologic History: Reports: None Oncologic (Cancer) History: Reports: None Dermatologic History: Reports: None - Infectious Disease History Infectious Disease History: Reports: None - Past Surgical History Head Surgeries/Procedures: Reports: None HEENT Surgical History: Reports: Tonsillectomy Cardiovascular Surgical History: Reports: None Respiratory Surgical History: Reports: None GI Surgical History: Reports: None Female Surgical History: Reports: Section Endocrine Surgical History: Reports: None Neurological Surgical History: Reports: None Musculoskeletal Surgical History: Reports: None Oncologic Surgical History: Reports: None Dermatological Surgical History: Reports: None Social & Family History - Family History Family Medical History: Noncontributory HEENT: Reports: Impaired Vision Cardiac: Reports: Hypertension, [place] Respiratory: Reports: Asthma OBGYN: Reports: Musculoskeletal: Reports: Back pain, Chronic Psychiatric: Reports: Depression - Tobacco Use Smoking Status *Q: Never Smoker Second Hand Smoke Exposure: No - Caffeine Use Caffeine Use: Reports: Coffee, Energy Drinks, Soda, Tea - Recreational Drug Use Recreational Drug Use: Yes Recreational Drug Type: Reports: Marijuana/Hashish Recreational Drug Use Frequency: Daily ED ROS GENERAL - Review of Systems Review Of Systems: See Below ED EXAM, GENERAL - Physical Exam Exam: See Below Course - Vital Signs Text/Narrative:: Patient presented with dysuria urgency and general malaise. She denied any respiratory symptoms she had a fever earlier this week no fever today. Urine is completely normal I went ahead and check some lab work which also turned out to be normal there is not appear to be urinary tract infection patient will be discharged home she is to take Motrin Tylenol follow-up with primary care doctor. The ED for further concerns worsening condition. Last Recorded V/S: Last Vital Signs Temp 36.4 C 04/18/20 09:46 Pulse 79 04/18/20 09:46 Resp 17 04/18/20 09:46 BP 114/84 04/18/20 09:46 Pulse Ox 99 04/18/20 09:46 - Orders/Labs/Meds Orders: Active Orders 24 hr Category Date Time Status Sodium Chloride 0.9% [Saline Flush] Med 04/18/20 10:36 Active 10 ml FLUSH ASDIRECTED PRN Sodium Chloride 0.9% [Saline Flush] Med 04/18/20 10:36 Active 2.5 ml FLUSH ASDIRECTED PRN Saline Lock Insert [OM.PC] Stat Oth 04/18/20 10:36 Ordered Medication Orders Sodium Chloride (Saline Flush) 10 ml FLUSH ASDIRECTED PRN PRN Reason: Keep Vein Open Sodium Chloride (Saline Flush) 2.5 ml FLUSH ASDIRECTED PRN PRN Reason: Keep Vein Open Labs: Laboratory Tests 04/18/20 04/18/20 04/18/20 Range/Units 09:50 09:50 10:44 WBC 5.91 (4.0-11.0) K/uL RBC 4.55 (4.30-5.90) M/uL Hgb 14.1 (12.0-16.0) g/dL Hct 39.3 (36.0-46.0) % MCV 86.4 (80.0-98.0) fL MCH 31.0 (27.0-32.0) pg MCHC 35.9 (31.0-37.0) g/dL RDW Std Deviation 37.9 (28.0-62.0) fl RDW Coeff of Conner 12 (11.0-15.0) % Plt Count 221 (150-400) K/uL MPV 9.30 (7.40-12.00) fL Neut % (Auto) 51.4 (48.0-80.0) % Lymph % (Auto) 38.1 (16.0-40.0) % [place] % (Auto) 8.0 (0.0-15.0) % Eos % (Auto) 2.2 (0.0-7.0) % Baso % (Auto) 0.3 (0.0-1.5) % Neut # (Auto) 3.0 (1.4-5.7) K/uL Lymph # (Auto) 2.3 (0.6-2.4) K/uL [place] # (Auto) 0.5 (0.0-0.8) K/uL Eos # (Auto) 0.1 (0.0-0.7) K/uL Baso # (Auto) 0.0 (0.0-0.1) K/uL Nucleated RBC % 0.0 /100WBC Nucleated RBCs # 0 K/uL Sodium (136-145) mmol/L Potassium (3.5-5.1) mmol/L Chloride (98-107) mmol/L Carbon Dioxide (21.0-32.0) mmol/L BUN (7.0-18.0) mg/dL Creatinine (0.6-1.0) mg/dL Est Cr Clr Drug Dosing mL/min Estimated GFR (MDRD) ml/min Glucose (74-106) mg/dL Calcium (8.5-10.1) mg/dL Total Bilirubin (0.2-1.0) mg/dL AST (15-37) IU/L ALT (14-63) IU/L Alkaline Phosphatase (46-116) U/L Total Protein (6.4-8.2) g/dL Albumin (3.4-5.0) g/dL Globulin (2.6-4.0) g/dL Albumin/Globulin Ratio (0.9-1.6) Lipase (73-393) U/L Urine Color YELLOW Urine Appearance CLEAR Urine pH 7.0 (5.0-8.0) Ur Specific [place] 1.015 (1.001-1.035) Urine Protein NEGATIVE (NEGATIVE) mg/dL Urine Glucose (UA) NEGATIVE (NEGATIVE) mg/dL Urine Ketones NEGATIVE (NEGATIVE) mg/dL Urine Occult Blood NEGATIVE (NEGATIVE) Urine Nitrite NEGATIVE (NEGATIVE) Urine Bilirubin NEGATIVE (NEGATIVE) Urine Urobilinogen 0.2 (<2.0) EU/dL Ur Leukocyte Esterase NEGATIVE (NEGATIVE) Urine HCG, Qual NEGATIVE (NEGATIVE) 04/18/20 Range/Units 10:44 WBC (4.0-11.0) K/uL RBC (4.30-5.90) M/uL Hgb (12.0-16.0) g/dL Hct (36.0-46.0) % MCV (80.0-98.0) fL MCH (27.0-32.0) pg MCHC (31.0-37.0) g/dL RDW Std Deviation (28.0-62.0) fl RDW Coeff of Conner (11.0-15.0) % Plt Count (150-400) K/uL MPV (7.40-12.00) fL Neut % (Auto) (48.0-80.0) % Lymph % (Auto) (16.0-40.0) % [place] % (Auto) (0.0-15.0) % Eos % (Auto) (0.0-7.0) % Baso % (Auto) (0.0-1.5) % Neut # (Auto) (1.4-5.7) K/uL Lymph # (Auto) (0.6-2.4) K/uL [place] # (Auto) (0.0-0.8) K/uL Eos # (Auto) (0.0-0.7) K/uL Baso # (Auto) (0.0-0.1) K/uL Nucleated RBC % /100WBC Nucleated RBCs # K/uL Sodium 142 (136-145) mmol/L Potassium 3.8 (3.5-5.1) mmol/L Chloride 105 (98-107) mmol/L Carbon Dioxide 27.3 (21.0-32.0) mmol/L BUN 10 (7.0-18.0) mg/dL Creatinine 0.9 (0.6-1.0) mg/dL Est Cr Clr Drug Dosing 74.92 mL/min Estimated GFR (MDRD) > 60.0 ml/min Glucose 92 (74-106) mg/dL Calcium 8.6 (8.5-10.1) mg/dL Total Bilirubin 0.5 (0.2-1.0) mg/dL AST 45 H (15-37) IU/L ALT 104 H (14-63) IU/L Alkaline Phosphatase 47 (46-116) U/L Total Protein 7.1 (6.4-8.2) g/dL Albumin 3.9 (3.4-5.0) g/dL Globulin 3.2 (2.6-4.0) g/dL Albumin/Globulin Ratio 1.2 (0.9-1.6) Lipase 97 (73-393) U/L Urine Color Urine Appearance Urine pH (5.0-8.0) Ur Specific [place] (1.001-1.035) Urine Protein (NEGATIVE) mg/dL Urine Glucose (UA) (NEGATIVE) mg/dL Urine Ketones (NEGATIVE) mg/dL Urine Occult Blood (NEGATIVE) Urine Nitrite (NEGATIVE) Urine Bilirubin (NEGATIVE) Urine Urobilinogen (<2.0) EU/dL Ur Leukocyte Esterase (NEGATIVE) Urine HCG, Qual (NEGATIVE) Meds: Medications Generic Name Dose Route Start Last Admin Trade Name Freq PRN Reason Stop Dose Admin Sodium Chloride 10 ml 04/18/20 10:36 Saline Flush FLUSH ASDIRECTED PRN Keep Vein Open Sodium Chloride 2.5 ml 04/18/20 10:36 Saline Flush FLUSH ASDIRECTED PRN Keep Vein Open Discontinued Medications Generic Name Dose Route Start Last Admin Trade Name Freq PRN Reason Stop Dose Admin Sodium Chloride 1,000 mls @ 999 mls/hr 04/18/20 10:36 04/18/20 10:45 Normal Saline IV 04/18/20 11:36 999 mls/hr .Bolus ONE Administration Departure - Departure Time of Disposition: 11:57 Disposition: Home, Self-Care 01 Condition: Good Clinical Impression: Dysuria - Discharge Information *PRESCRIPTION DRUG MONITORING PROGRAM REVIEWED*: Not Applicable *COPY OF PRESCRIPTION DRUG MONITORING REPORT IN PATIENT CARYN: Not Applicable Instructions: Dysuria Referrals: PCP,None [Primary Care Provider] - Forms: ED Department Discharge Additional Instructions: The following information is given to patients seen in the emergency department who are being discharged to home. This information is to outline your options for follow-up care. We provide all patients seen in our emergency department with a follow-up referral. The need for follow-up, as well as the timing and circumstances, are variable depending upon the specifics of your emergency department visit. If you don't have a primary care physician on staff, we will provide you with a referral. We always advise you to contact your personal physician following an emergency department visit to inform them of the circumstance of the visit and for follow-up with them and/or the need for any referrals to a consulting specialist. The emergency department will also refer you to a specialist when appropriate. This referral assures that you have the opportunity for follow-up care with a specialist. All of these measure are taken in an effort to provide you with optimal care, which includes your follow-up. Under all circumstances we always encourage you to contact your private physician who remains a resource for coordinating your care. When calling for follow-up care, please make the office aware that this follow-up is from your recent emergency room visit. If for any reason you are refused follow-up, please contact the [facility] Emergency Department at and asked to speak to the emergency department charge nurse. [facility] [address] [place] [id number] [facility] [address] [place] [id number] Sepsis Event Note (ED) - Evaluation Sepsis Screening Result: No Definite Risk - Focused Exam Vital Signs: Vital Signs Temp Pulse Resp BP Pulse Ox 04/18/20 09:46 36.4 C 79 17 114/84 99 - My Orders Last 24 Hours: My Active Orders 04/18/20 10:36 Sodium Chloride 0.9% [Saline Flush] 10 ml FLUSH ASDIRECTED PRN Sodium Chloride 0.9% [Saline Flush] 2.5 ml FLUSH ASDIRECTED PRN Saline Lock Insert [OM.PC] Stat - Assessment/Plan Last 24 Hours: My Active Orders 04/18/20 10:36 Sodium Chloride 0.9% [Saline Flush] 10 ml FLUSH ASDIRECTED PRN Sodium Chloride 0.9% [Saline Flush] 2.5 ml FLUSH ASDIRECTED PRN Saline Lock Insert [OM.PC] Stat
[2020-04-18] MEDS ORDERED: Sodium Chloride 0.9% 1,000 ML IV ONE (10:36)
[2020-04-18] MEDS ORDERED: Sodium Chloride 0.9% 10 ML Syringe FLUSH PRN (10:36)
[2020-04-18] MEDS ORDERED: Sodium Chloride 0.9% 2.5 ML Syringe FLUSH PRN (10:36)
[2020-04-18 11:22] LABS: BLOOD UREA NITROGEN,BUN 10 mg/dL (7.0-18.0); CARBON DIOXIDE,CO2 27.3 mmol/L (21.0-32.0); CHLORIDE,CL 105 mmol/L (98-107); GLUCOSE RANDOM 92 mg/dL (74-106); LIPASE 97 U/L (73-393); POTASSIUM,K 3.8 mmol/L (3.5-5.1); SODIUM,NA 142 mmol/L (136-145)
== END 2020-04-18 12:12 | disposition home or self-care (01) ==
LOC: MW.ED 09:34
DX: R30.0 Dysuria (principal)
CPT/HCPCS: 36415; 80053; 81003; 81025; 83690; 85025; 99283; J7030; 99282